=== PATIENT | male | born 1975 | race African-American/Black ===

== ENCOUNTER 2020-06-06 20:44 | Emergency (ER) | payer MEDICAID ==
[~2020-06-06] VITALS: Ht 188 cm; Wt 105.0 kg
[2020-06-06] MEDS ORDERED: KETOROLAC 60MG/2ML VIAL IM ONE (22:45)
[2020-06-06] MEDS ORDERED: HYDROCODONE/ACETAMINOPHEN 10/325MG TABLET PO ONE (22:45)
[2020-06-06 23:40] LABS: BASOPHILS % 0.4 % (0.0-2.0); EOSINOPHILS % 0.1 % (0.0-5.0); HEMOGLOBIN. 14.4 g/dL (14.0-18.0); MEAN CORPUSCULAR HEMOGLOBIN 29.9 pg (28.0-32.0); MEAN CORPUSCULAR VOLUME 89.5 fL (80.0-94.0); MEAN PLATELET VOLUME 8.2 fl (7.4-10.4); MONOCYTES % 5.6 % (2.0-8.0); NEUTROPHILS % 81.9 % (40.0-76.0); PLATELET 242 x1000/uL (130-400); RED BLOOD CELL COUNT 4.81 mill/uL (4.7-6.1); RED CELL DISTRIBUTION WIDTH 12.7 % (11.6-14.6)
[2020-06-06 23:40] LABS: CLARITY URINE CLEAR (CLEAR); COLOR URINE DARK YELLOW (YELLOW); KETONES URINE 2+ (NEGATIVE); LEUKOCYTE ESTERASE URINE 1+ (NEGATIVE); NITRITE URINE NEGATIVE (NEGATIVE); OCCULT BLOOD URINE TRACE (NEGATIVE); PH URINE 6.5 (4.5-8.0); PROTEIN URINE 1+ (NEGATIVE); SPECIFIC GRAVITY URINE 1.035 (1.005-1.030)
[2020-06-06 23:48] LABS: CHLORIDE 107 mEq/L (98-107)
[2020-06-07] MEDS ORDERED: IOHEXOL-300 100 ML BOTTLE ONE (00:43)
[2020-06-07] MEDS ORDERED: SODIUM CHLORIDE 0.9% 1,000 ML IV NR (02:00)
[2020-06-07] MEDS ORDERED: LEVO750T46 MT (05:25)
[2020-06-07] MEDS ORDERED: LEVOFLOXACIN 750MG PREMIX 150 ML IV ONE (05:30)
[2020-06-07 06:18] VITALS: BP 116/73
== END 2020-06-07 06:22 | disposition home or self-care (01) ==
LOC: ER 20:44
DX: N49.1 Inflammatory disorders of spermatic cord, tunica vaginalis and vas deferens (principal); R10.31 Right lower quadrant pain
CPT/HCPCS: 36415; 74177; 76870; 76872; 80053; 81003; 83690; 85025; 87086; 93976; 96361; 96365; 96372; 99285; J1885; J1956; Q9967